=== PATIENT | male | born 1950 | race Two or more races ===

== ENCOUNTER 2021-05-18 13:30 | Outpatient (CLI) | payer OTHER | END 2021-05-18 13:33 | disposition home or self-care (01) | LOC: NUCLEAR 13:30 | PROVIDERS: ATTEND Internal Medicine | DX: G30.8 Other Alzheimer's disease (principal); G30.0 Alzheimer's disease with early onset | CPT/HCPCS: 78803; A9557; J1120 ==

== ENCOUNTER → 2021-06-29 07:17 | Outpatient (CLI) | payer OTHER | END | disposition home or self-care (01) | LOC: NUCLEAR 07:17 | PROVIDERS: ATTEND Internal Medicine Cardiovascular Disease | DX: I25.6 Silent myocardial ischemia (principal) | CPT/HCPCS: 78452; 93017; A9500; J1250 ==

== ENCOUNTER 2023-07-10 14:10 | Outpatient (CLI) | payer OTHER | END 2023-07-10 14:17 | disposition home or self-care (01) | LOC: RAD 14:10 | DX: M66.88 Spontaneous rupture of other tendons, other sites (principal) ==

== ENCOUNTER 2023-10-24 13:22 | Outpatient (CLI) | payer OTHER | END 2023-10-24 13:29 | disposition home or self-care (01) | LOC: TOM 13:22 | PROVIDERS: ATTEND Specialist | DX: J84.9 Interstitial pulmonary disease, unspecified (principal) ==

== ENCOUNTER 2023-11-14 13:10 | Outpatient (CLI) | payer OTHER | END 2023-11-14 13:24 | disposition home or self-care (01) | LOC: RAD 13:10 | PROVIDERS: ATTEND Orthopaedic Surgery Sports Medicine | DX: M17.0 Bilateral primary osteoarthritis of knee (principal) ==